=== PATIENT | male | born 1950 | race Caucasian/White ===

== ENCOUNTER → 2018-01-08 | Outpatient (CLI) | payer MEDICARE ==
[~2018-01-08] MED LIST: GADOBENATE DIMEGLUMINE 20 ML IV ONE
== END | disposition home or self-care (01) ==
LOC: RAH 07:30
PROVIDERS: ATTEND Physical Medicine & Rehabilitation
DX: M47.26 Other spondylosis with radiculopathy, lumbar region (principal); M48.061 Spinal stenosis, lumbar region without neurogenic claudication; Z91.81 History of falling
CPT/HCPCS: 72158; A9577

== ENCOUNTER → 2019-02-10 | Outpatient (CLI) | payer MEDICARE | END | disposition home or self-care (01) | LOC: RAH 08:45 | PROVIDERS: ATTEND Physical Medicine & Rehabilitation | DX: M47.22 Other spondylosis with radiculopathy, cervical region (principal); M25.78 Osteophyte, vertebrae | CPT/HCPCS: 72141 ==

== ENCOUNTER 2019-02-17 05:56 | Day surgery (SDC) | payer MEDICARE ==
[2019-02-15 11:54] VITALS: BP 104/65
[2019-02-15] MEDS: CEFAZOLIN SODIUM 1 GM VIAL IVP SCH (13:15)
[~2019-02-17] VITALS: Ht 180.3 cm; Wt 110.6 kg
[2019-02-17] VITALS (11 sets, daily range): BP systolic 126–144; BP diastolic 50–83
[~2019-02-17 05:56] MED LIST changes: +APIX5TAB PO; +ASPI-555 PO; +BIMA12.5OS OD; +BRIM10DR16 OD; +BROM1.7D9 OD; +BUPR150T8 PO; +FLUT15.88 NS; +GABA-531 PO; -GADOBENATE DIMEGLUMINE 20 ML IV ONE; +METHOTREXATE PO; +METO25TA6 PO; +TAMS-1 PO; +TIMO.5OS OD
[2019-02-17] MEDS ORDERED: LACTATED RINGERS 1000ML 1,000 ML IV ONE (06:45)
[2019-02-17] MEDS ORDERED: CEFAZOLIN SODIUM 1 GM VIAL ONE (06:45)
[2019-02-17] MEDS ORDERED: PROPOFOL 10 MG/ML 20ML VIAL IV ONE (06:48)
[2019-02-17] MEDS ORDERED: LIDOCAINE PF 2% 5ML ABBOJECT ONE (06:48)
[2019-02-17] MEDS ORDERED: DEXAMETHASONE SOD PHOSPHATE 10MG/ML 1ML VIAL ONE (06:49)
[2019-02-17] MEDS ORDERED: ONDANSETRON HCL 4 MG/2 ML VIAL ONE (06:49)
[2019-02-17] MEDS ORDERED: MIDAZOLAM HCL 1 MG/ML 2ML VIAL ONE (06:49)
[2019-02-17] MEDS ORDERED: FENTANYL CITRATE PF 50 MCG/1 ML 2ML VIAL ONE ×2 (06:50→07:59)
[2019-02-17] MEDS ORDERED: LIDOCAINE HCL-MPF 0.5% 50ML VIAL IJ ONE ×2 (06:55→06:57)
[2019-02-17] MEDS: CEFAZOLIN SODIUM 1 GM VIAL IVP SCH (07:47)
== END 2019-02-17 09:46 | disposition home or self-care (01) ==
LOC: DAH 05:56
PROVIDERS: ATTEND Neurological Surgery
DX: G56.01 Carpal tunnel syndrome, right upper limb (principal); Z98.890 Other specified postprocedural states; Z79.899 Other long term (current) drug therapy; Z88.8 Allergy status to other drugs, medicaments and biological substances; M19.90 Unspecified osteoarthritis, unspecified site
CPT/HCPCS: 64721; 93005; A4218; J0690; J1100; J2001; J2250; J2405; J2704; J3010 ×2; J3490 ×2; J7120

== ENCOUNTER 2019-10-25 19:57 | Emergency (ER) | payer MEDICARE, OTHER ==
[~2019-10-25 19:57] MED LIST changes: +FLUT15.845 NS; -FLUT15.88 NS
[2019-10-25] MEDS ORDERED: SODIUM CHLORIDE 0.9% 1000ML 1,000 ML IV ONE (20:58)
[2019-10-25 21:14] LABS: BASOPHILS % (AUTO) 0.7 % (0.0-5.0); EOSINOPHILS % (AUTO) 6.4 % (0.0-8.0); HEMATOCRIT 33.9 % (42-54); LYMPHOCYTES % (AUTO) 15.1 % (21.0-51.0); MEAN CORPUSCULAR HEMOGLOBIN 30.4 pg (27.0-33.0); MEAN CORPUSCULAR HGB CONC 32.7 g/dL (32.0-36.0); MEAN CORPUSCULAR VOLUME 92.9 fL (79-99); MONOCYTES % (AUTO) 15.9 % (3.0-13.0); NEUTROPHILS % (AUTO) 60.8 % (40.0-77.0); PLATELET COUNT (AUTO) 238 K/uL (130-400); RED BLOOD CELL COUNT(AUTO) 3.65 MIL/uL (4.50-6.20); WHITE BLOOD COUNT (AUTO) 13.5 K/uL (4.8-10.8)
[2019-10-25 21:28] LABS: CREATININE 0.9 mg/dL (0.5-1.5)
[2019-10-25 21:32] LABS: ALBUMIN 2.4 g/dL (3.5-5.0); BILIRUBIN,TOTAL 0.4 mg/dL (0.2-1.0)
[2019-10-25] MEDS ORDERED: IOHEXOL 350 MG/ML 100ML INFUS..BTL IV ONE (21:45)
[2019-10-25] MEDS ORDERED: BISACODYL 10 MG SUPP.RECT RC ONE (23:27)
[2019-10-26] MEDS ORDERED: ONDANSETRON HCL 4 MG/2 ML VIAL ONE (01:31)
[2019-10-26] MEDS ORDERED: MORPHINE SULFATE 2 MG/ML 1ML SYG ONE (01:32)
== END 2019-10-26 01:47 | disposition short-term general hospital (02) ==
LOC: EDH 19:57
DX: T82.330A Leakage of aortic (bifurcation) graft (replacement), initial encounter (principal); M54.6 Pain in thoracic spine; G89.29 Other chronic pain; K59.00 Constipation, unspecified; F32.9 Major depressive disorder, single episode, unspecified; Z88.8 Allergy status to other drugs, medicaments and biological substances; Z88.4 Allergy status to anesthetic agent
CPT/HCPCS: 36415; 71275; 74174; 80053; 84484; 85025; 93005; 96374; 96375; 99291; 99292; J2405; J7030; Q9967

== ENCOUNTER 2020-10-18 05:52 | Day surgery (SDC) | payer MEDICARE ==
[2020-10-17 09:06] VITALS: BP 123/69
--- NOTE | 2020-10-17 09:43 | NUR ---
EKG ABNORMAL EKG REPORTED TO DR. FAYE. NO NEW TELEPHONE ORDERS RECEIVED.
[~2020-10-18] VITALS: Ht 180.3 cm; Wt 114.8 kg
[2020-10-18] VITALS (11 sets, daily range): BP systolic 113–136; BP diastolic 57–73
[~2020-10-18 05:52] MED LIST changes: +AEC81 PO; +AMIO200T6 PO; -ASPI-555 PO; -BIMA12.5OS OD; -BRIM10DR16 OD; -BROM1.7D9 OD; -FLUT15.845 NS; +FOLIC ACID PO; -GABA-531 PO; +METH2.5T6 PO; -METHOTREXATE PO; +OXYB5TAB15 PO; -TIMO.5OS OD
[2020-10-18] MEDS: CEFAZOLIN SODIUM 1 GM VIAL IVP SCH ×2 (06:30→07:38)
[2020-10-18] MEDS ORDERED: LACTATED RINGERS 1000ML 1,000 ML IV ONE (06:34)
[2020-10-18] MEDS ORDERED: MIDAZOLAM HCL 1 MG/ML 2ML VIAL ONE (07:01)
[2020-10-18] MEDS ORDERED: FENTANYL CITRATE PF 50 MCG/1 ML 2ML VIAL ONE (07:02)
[2020-10-18] MEDS ORDERED: PROPOFOL 10 MG/ML 20ML VIAL IV ONE (07:02)
[2020-10-18] MEDS ORDERED: LIDOCAINE HCL-MPF 0.5% 50ML VIAL IJ ONE (07:04)
--- NOTE | 2020-10-18 08:50 | NUR ---
Pt received Pt received from PACU via stretcher accompanied by Antoine RN. Pt awake and alert. Talkative, denies any pain. Able to move left fingers, warm to touch. Has dressing in place with coban. States no need to loosen it; feels fine. was called in to bedside. No bleeding to surgical site.
--- NOTE | 2020-10-18 09:30 | NUR ---
D/C Pt prepared for discharge. Written and verbal discharge instructions given to and pt and date and time for follow up appointment.. Also gave rx for Toradol. Left fingers remain warm; able to move. Dressing dry and intact. Clarified with Dr. Chavis when pt can resume Eliquis; order was received for pt to hold it until frida are removed at this office. Made and pt aware and stated Dr. Chavis told her he can resume it tomorrow. Also gave staple removal kit to be taken with pt at time of follow up appointment. No other concerns. Pt was then taken to private vehicle via w/c in no distress.
== END 2020-10-18 09:40 ==
LOC: DAH 05:52
PROVIDERS: ATTEND Neurological Surgery
DX: G56.02 Carpal tunnel syndrome, left upper limb (principal); E66.01 Morbid (severe) obesity due to excess calories; Z79.82 Long term (current) use of aspirin; Z79.01 Long term (current) use of anticoagulants; Z79.899 Other long term (current) drug therapy
CPT/HCPCS: 64721; 93005; A4215; A4216; A4221; A4222; A4223; A4663; C9803; J0690; J2250; J2704; J3010; J3490; J7120; U0003

== ENCOUNTER 2021-11-06 07:35 | Day surgery (SDC) | payer MEDICARE ==
[~2021-11-06] VITALS: Ht 182.9 cm; Wt 113.4 kg
[2021-11-06] VITALS (8 sets, daily range): BP systolic 99–134; BP diastolic 47–69
[~2021-11-06 07:35] MED LIST changes: +0.9%NACL 1000ML 1,000 ML IV ONE; -AMIO200T6 PO; +AMIO200T68 PO; +FAMO40TA7 PO; -FOLIC ACID PO; -METH2.5T6 PO; -OXYB5TAB15 PO; +folic acid PO
[2021-11-06] MEDS ORDERED: METH2.5T6 PO (09:07)
[2021-11-06] MEDS ORDERED: PROPOFOL 10 MG/ML 20ML VIAL IV ONE ×2 (09:47→09:53)
== END 2021-11-06 10:40 | disposition home or self-care (01) ==
LOC: ENDO 07:35 → DAH 07:35 → ENDO 10:40
PROVIDERS: ATTEND Internal Medicine Gastroenterology
DX: K25.7 Chronic gastric ulcer without hemorrhage or perforation (principal); Z20.822 Contact with and (suspected) exposure to COVID-19; K29.70 Gastritis, unspecified, without bleeding; K21.9 Gastro-esophageal reflux disease without esophagitis; R43.8 Other disturbances of smell and taste; K59.04 Chronic idiopathic constipation; I10 Essential (primary) hypertension; I25.10 Atherosclerotic heart disease of native coronary artery without angina pectoris; M19.90 Unspecified osteoarthritis, unspecified site; F41.9 Anxiety disorder, unspecified; F32.9 Major depressive disorder, single episode, unspecified; I48.91 Unspecified atrial fibrillation; E66.9 Obesity, unspecified; Z68.33 Body mass index [BMI] 33.0-33.9, adult; Z79.01 Long term (current) use of anticoagulants; Z79.82 Long term (current) use of aspirin; Z98.890 Other specified postprocedural states
CPT/HCPCS: 43239; 87635; 88305; 88342; A4215 ×2; A4221; A4222; A4223; A4606; A4620; A4663; C9803; J2704; J7030

== ENCOUNTER → 2021-11-26 | Outpatient (CLI) | payer MEDICARE ==
[~2021-11-26] MED LIST changes: -0.9%NACL 1000ML 1,000 ML IV ONE; +METH2.5T6 PO; -METO25TA6 PO
== END | disposition home or self-care (01) ==
LOC: RAH 09:49
PROVIDERS: ATTEND Physical Medicine & Rehabilitation
DX: M47.816 Spondylosis without myelopathy or radiculopathy, lumbar region (principal); M41.86 Other forms of scoliosis, lumbar region; M43.5X6 Other recurrent vertebral dislocation, lumbar region; M46.1 Sacroiliitis, not elsewhere classified; I71.4 Abdominal aortic aneurysm, without rupture; Z95.828 Presence of other vascular implants and grafts; Z88.4 Allergy status to anesthetic agent; Z88.8 Allergy status to other drugs, medicaments and biological substances
CPT/HCPCS: 72110

== ENCOUNTER → 2022-01-28 | Outpatient (CLI) | payer MEDICARE | END | disposition home or self-care (01) | LOC: RAH 13:04 | PROVIDERS: ATTEND Physical Medicine & Rehabilitation | DX: M47.27 Other spondylosis with radiculopathy, lumbosacral region (principal); M48.07 Spinal stenosis, lumbosacral region; M46.1 Sacroiliitis, not elsewhere classified; M16.12 Unilateral primary osteoarthritis, left hip; I71.4 Abdominal aortic aneurysm, without rupture; Z98.890 Other specified postprocedural states; Z88.4 Allergy status to anesthetic agent; Z88.8 Allergy status to other drugs, medicaments and biological substances | CPT/HCPCS: 72148; 73502 ==

== ENCOUNTER → 2022-04-29 | Outpatient (CLI) | payer MEDICARE ==
[~2022-04-29] MED LIST changes: +BUPR-113 PO; -BUPR150T8 PO
== END | disposition home or self-care (01) ==
LOC: RAH 14:46
PROVIDERS: ATTEND Physical Medicine & Rehabilitation
DX: S33.140A Subluxation of L4/L5 lumbar vertebra, initial encounter (principal); M47.816 Spondylosis without myelopathy or radiculopathy, lumbar region; M48.061 Spinal stenosis, lumbar region without neurogenic claudication; M51.36 Other intervertebral disc degeneration, lumbar region; M54.51 Vertebrogenic low back pain; M96.1 Postlaminectomy syndrome, not elsewhere classified; Z98.1 Arthrodesis status; X58.XXXA Exposure to other specified factors, initial encounter; Y93.89 Activity, other specified; Y92.89 Other specified places as the place of occurrence of the external cause; Y99.8 Other external cause status
CPT/HCPCS: 72131

== ENCOUNTER → 2022-07-04 | Outpatient (CLI) | payer OTHER ==
[~2022-07-04] MED LIST changes: -AEC81 PO; -AMIO200T68 PO; -APIX5TAB PO; +HONEY 1 APPL/ML TUBE TP ONE; +HYDR-4068 PO; +LIDOCAINE HCL 4% LTA SOL 4 ML VIAL TP ONE; +LINA145C PO; +LOSA100T58 PO; +PANT40GR PO
== END | disposition home or self-care (01) ==
LOC: WHH 09:17
PROVIDERS: ATTEND Family Medicine
DX: S91.002A Unspecified open wound, left ankle, initial encounter (principal); S61.402A Unspecified open wound of left hand, initial encounter; S91.302A Unspecified open wound, left foot, initial encounter; E11.22 Type 2 diabetes mellitus with diabetic chronic kidney disease; I12.9 Hypertensive chronic kidney disease with stage 1 through stage 4 chronic kidney disease, or unspecified chronic kidney disease; N18.30 Chronic kidney disease, stage 3 unspecified; E78.5 Hyperlipidemia, unspecified; M17.12 Unilateral primary osteoarthritis, left knee; I25.10 Atherosclerotic heart disease of native coronary artery without angina pectoris; N40.0 Benign prostatic hyperplasia without lower urinary tract symptoms; E66.9 Obesity, unspecified; Z68.35 Body mass index [BMI] 35.0-35.9, adult; Z95.5 Presence of coronary angioplasty implant and graft; Z87.891 Personal history of nicotine dependence; Z79.01 Long term (current) use of anticoagulants; Z79.82 Long term (current) use of aspirin; V09.9XXA Pedestrian injured in unspecified transport accident, initial encounter; Y93.89 Activity, other specified; Y92.89 Other specified places as the place of occurrence of the external cause; Y99.8 Other external cause status
CPT/HCPCS: 11042; A4450

== ENCOUNTER → 2022-07-11 | Outpatient (CLI) | payer OTHER ==
[~2022-07-11] MED LIST changes: -HONEY 1 APPL/ML TUBE TP ONE; -LIDOCAINE HCL 4% LTA SOL 4 ML VIAL TP ONE
== END | disposition home or self-care (01) ==
LOC: WHH 09:09
PROVIDERS: ATTEND Family Medicine
DX: S91.002D Unspecified open wound, left ankle, subsequent encounter (principal); S61.402D Unspecified open wound of left hand, subsequent encounter; S91.302D Unspecified open wound, left foot, subsequent encounter; E11.22 Type 2 diabetes mellitus with diabetic chronic kidney disease; I12.9 Hypertensive chronic kidney disease with stage 1 through stage 4 chronic kidney disease, or unspecified chronic kidney disease; N18.30 Chronic kidney disease, stage 3 unspecified; E78.5 Hyperlipidemia, unspecified; M17.12 Unilateral primary osteoarthritis, left knee; I25.10 Atherosclerotic heart disease of native coronary artery without angina pectoris; N40.0 Benign prostatic hyperplasia without lower urinary tract symptoms; E66.9 Obesity, unspecified; Z68.35 Body mass index [BMI] 35.0-35.9, adult; Z87.891 Personal history of nicotine dependence; Z79.01 Long term (current) use of anticoagulants; Z79.82 Long term (current) use of aspirin; Z95.5 Presence of coronary angioplasty implant and graft; Z98.890 Other specified postprocedural states; V09.9XXD Pedestrian injured in unspecified transport accident, subsequent encounter
CPT/HCPCS: G0463

== ENCOUNTER → 2022-07-18 | Outpatient (CLI) | payer OTHER ==
[~2022-07-18] MED LIST changes: +LIDOCAINE HCL 4% LTA SOL 4 ML VIAL TP ONE
== END | disposition home or self-care (01) ==
LOC: WHH 08:12
PROVIDERS: ATTEND Family Medicine
DX: S91.002D Unspecified open wound, left ankle, subsequent encounter (principal); S61.402D Unspecified open wound of left hand, subsequent encounter; S91.302D Unspecified open wound, left foot, subsequent encounter; E11.22 Type 2 diabetes mellitus with diabetic chronic kidney disease; I12.9 Hypertensive chronic kidney disease with stage 1 through stage 4 chronic kidney disease, or unspecified chronic kidney disease; N18.30 Chronic kidney disease, stage 3 unspecified; E78.5 Hyperlipidemia, unspecified; M17.12 Unilateral primary osteoarthritis, left knee; I25.10 Atherosclerotic heart disease of native coronary artery without angina pectoris; N40.0 Benign prostatic hyperplasia without lower urinary tract symptoms; E66.9 Obesity, unspecified; Z68.35 Body mass index [BMI] 35.0-35.9, adult; Z87.891 Personal history of nicotine dependence; Z79.01 Long term (current) use of anticoagulants; Z79.82 Long term (current) use of aspirin; Z95.5 Presence of coronary angioplasty implant and graft; Z98.890 Other specified postprocedural states; V09.9XXD Pedestrian injured in unspecified transport accident, subsequent encounter
CPT/HCPCS: G0463

== ENCOUNTER 2023-06-28 09:19 | Emergency (ER) | payer OTHER, MEDICARE ==
[~2023-06-28] VITALS: Ht 182.9 cm; Wt 105.2 kg
[~2023-06-28 09:19] MED LIST changes: -LIDOCAINE HCL 4% LTA SOL 4 ML VIAL TP ONE; -LOSA100T58 PO; +LOSA100T59 PO
[2023-06-28 10:09] LABS: BASOPHILS # (AUTO) 0.06 K/uL (0.00-0.20); BASOPHILS % (AUTO) 0.5 % (0.0-5.0); EOSINOPHILS # (AUTO) 0.19 K/uL (0.00-0.70); EOSINOPHILS % (AUTO) 1.5 % (0.0-8.0); HEMATOCRIT 41.9 % (42-54); IMMATURE GRANULOCYTE ABSOLUTE 0.06 K/uL (0-1); LYMPHOCYTES # (AUTO) 2.1 K/uL (1.0-4.8); LYMPHOCYTES % (AUTO) 16.5 % (21.0-51.0); MEAN CORPUSCULAR HEMOGLOBIN 29.1 pg (27.0-33.0); MEAN CORPUSCULAR HGB CONC 32.7 g/dL (32.0-36.0); MONOCYTES # (AUTO) 1.9 K/uL (0.1-1.0); MONOCYTES % (AUTO) 14.9 % (3.0-13.0); NEUTROPHILS # (AUTO) 8.6 K/uL (1.8-7.7); NEUTROPHILS % (AUTO) 66.1 % (40.0-77.0); PLATELET COUNT (AUTO) 200 K/uL (130-400); RED BLOOD CELL COUNT(AUTO) 4.71 MIL/uL (4.50-6.20); RED CELL DISTRIBUTION WIDTH 15.2 % (11.0-15.5)
[2023-06-28 10:37] LABS: CREATININE 1.4 mg/dL (0.5-1.5); POTASSIUM 4.1 mmol/L (3.5-5.1)
[2023-06-28 10:43] LABS: ALBUMIN 3.1 g/dL (3.5-5.0); BILIRUBIN,TOTAL 0.5 mg/dL (0.2-1.0); MAGNESIUM 2.3 mg/dL (1.80-2.40); TOTAL PROTEIN, SERUM 7.5 g/dL (6.0-8.3)
[2023-06-28] MEDS ORDERED: MECLIZINE HCL 25 MG TABLET PO ONE (12:30)
[2023-06-28] MEDS ORDERED: 0.9%NACL 1000ML 1,000 ML IV ONE (12:30)
[2023-06-28 13:12] LABS: APPEARANCE,URINE CLEAR (CLEAR); BILIRUBIN,URINE NEGATIVE (NEGATIVE); COLOR,URINE YELLOW (YELLOW); GLUCOSE, URINE (UA) NEGATIVE (NEGATIVE); KETONES,URINE NEGATIVE (NEGATIVE); LEUKOCYTE ESTERASE ,URINE NEGATIVE Leu/uL (NEGATIVE); NITRATE,URINE NEGATIVE (NEGATIVE); OCCULT BLOOD,URINE NEGATIVE (NEGATIVE); PH,URINE 5.5 (5.0-8.0); PROTEIN,URINE 70 mg/dL (NEGATIVE); UROBILINOGEN,URINE 0.2 mg/dL (0.2-1.0)
[2023-06-28 13:16] LABS: ADD UA MICROSCOPIC NO
[2023-06-28 16:16] VITALS: BP 147/75; PULSE 78; RESP 18; O2SAT 98
== END 2023-06-28 16:19 | disposition home or self-care (01) ==
LOC: EDH 09:19
DX: E86.0 Dehydration (principal); R42 Dizziness and giddiness; F32.A Depression, unspecified; I10 Essential (primary) hypertension
CPT/HCPCS: 99285; 96360; 70450; 71045; 83735; 84484 ×2; 80053; 83880; 85025; 81003; 36415; 93005; J7030

== ENCOUNTER → 2024-05-25 | Outpatient (CLI) | payer MEDICARE | END | disposition home or self-care (01) | LOC: RAH 11:53 | PROVIDERS: ATTEND Neurological Surgery | DX: M47.812 Spondylosis without myelopathy or radiculopathy, cervical region (principal) | CPT/HCPCS: 72050 ==

== ENCOUNTER → 2024-05-28 | Outpatient (CLI) | payer MEDICARE ==
[~2024-05-28] MED LIST changes: +APIX5TAB PO; +ATOR40TA71 PO; +CHOL100046 PO; +DOCU-116 PO; +FOLI0.8T53 PO; +METO25TA6 PO
== END | disposition home or self-care (01) ==
LOC: RAH 10:41
PROVIDERS: ATTEND Neurological Surgery
DX: M54.12 Radiculopathy, cervical region (principal); Z98.890 Other specified postprocedural states; M48.02 Spinal stenosis, cervical region
CPT/HCPCS: 72141